=== PATIENT | male | born 1955 | race Caucasian/White ===

== ENCOUNTER 2022-08-14 06:40 | Day surgery (SDC) | payer MEDICARE ==
--- NOTE | 2022-08-12 13:34 | HP ---
DATE OF SURGERY: 08/14/2022 HISTORY OF PRESENT ILLNESS: The patient is a 66-year-old male with complaints of skin lesions on the left forearm. It appears that he had a biopsy of these in the past. It is not certain what this came back as. PAST MEDICAL HISTORY: Gastroesophageal reflux disease. PAST SURGICAL HISTORY: None recent. ALLERGIES: NKDA. MEDICATIONS: Propranolol. FAMILY HISTORY: None reported. SOCIAL HISTORY: None reported. REVIEW OF SYSTEMS: CONSTITUTIONAL: Denies fever or chills. CHEST: Denies shortness of breath. CVS: Denies chest pain. ABDOMEN: Denies abdominal pain. PHYSICAL EXAMINATION: GENERAL: No acute distress. CHEST: Nonlabored. No shortness of breath. CVS: Regular rate and rhythm. ABDOMEN: Soft. IMPRESSION: Forearm lesion. PLAN: Excision of left forearm lesion with Dr. Demetrio Marc. As dictated by Celine Weeks NP.
[2022-08-14] MEDS ORDERED: XYLOCAINE 1% HCL 20 ML MDV ONE ×2 (06:56→10:37)
[2022-08-14 11:41] VITALS: BP 137/69; PULSE 75
[2022-08-14 11:42] VITALS: O2SAT 94
--- NOTE | 2022-08-14 12:58 | OP ---
SURGERY DATE/TIME: 08/14/2022 1000 PREOPERATIVE DIAGNOSIS: Multiple premalignant lesions. POSTOPERATIVE DIAGNOSIS: Multiple premalignant lesions. PROCEDURE: Excision of four lesions 1 cm on the left upper arm and three - 1 cm lesions on the forearm. All four areas were primarily closed. All four lesions were atypical. Pathology is pending. SURGEON: Demetrio Marc M.D. ANESTHESIA: Local. DESCRIPTION OF PROCEDURE: Routine prep and drape. 1% lidocaine. Elliptical excision. Hemostasis obtained with electrocautery. The area closed with simple and vertical mattress sutures 4-0 Prolene. Sterile dressing applied. The patient tolerated the procedure satisfactory. Findings discussed with the in the waiting room.
== END 2022-08-14 11:44 | disposition home or self-care (01) ==
LOC: SDC 06:40
PROVIDERS: ATTEND Surgery
DX: C44.629 Squamous cell carcinoma of skin of left upper limb, including shoulder (principal); L57.0 Actinic keratosis; L82.1 Other seborrheic keratosis

== ENCOUNTER 2024-07-12 15:27 | Observation (INO) | payer MEDICARE ==
--- NOTE | 2024-07-12 16:00 | ERPHSYRPT ---
- History of Present Illness Time Seen by Provider: 07/12/24 15:45 Source: patient Exam Limitations: no limitations Patient Subjective Stated Complaint: pt was in physical therapy when his oxygen level dropped to 66% Triage Nursing Assessment: pt came into er via wheelchair; pt transfer to cot with standby assist; pt is axo x4; c/o SOB; pt denies pain and denies chest pain; clear lung sounds in all lobes; dry hacking cough present; pt states SOB, no respiratory distress present; pt is able to talk in full sentence; 96% on room air; vitals wnl; skin PDW Physician History: 68-year-old male presents to our ED for evaluation of shortness of breath. Patient states he was in physical therapy performing exercises when symptoms occurred. Patient reports that physical therapy checked his O2 sat. O2 sat was 66% on room air. Patient was brought to our ED for an evaluation. Patient reports he has pain to his left calf. Patient denies history of COPD. No fever no cough. Patient denies chest pain. Symptoms are worse with exertion. O2 sat on room air at rest is 96%. Patient currently feels well he voices no other complaints or concerns at this time. Portions of this note were created with voice recognition technology. There may be grammatical, spelling, punctuation or sound alike errors Timing/Duration: today Severity: moderate Modifying Factors: Improves With: nothing Associated Symptoms: denies symptoms Allergies/Adverse Reactions: No Known Drug Allergies Allergy (Verified 07/12/24 15:28) Home Medications: Aspirin [Low Dose Aspirin EC] 1 tab PO DAILY 07/07/22 [History] Carvedilol 12.5 mg [Coreg 12.5 mg] 1 tab PO BID 07/07/22 [History] Empagliflozin [Jardiance] 25 mg PO DAILY 07/07/22 [History] Ezetimibe 10 mg [Zetia 10 MG] 10 mg PO DAILY 07/07/22 [History] Furosemide 40 mg [Lasix 40 MG] 40 mg PO DAILY 07/07/22 [History] Multivit-Min/Folic/Vit K/Lycop [Men's 50 Plus Multivitamin Tab] 1 tab PO DAILY 07/07/22 [History] [place]-3S/Dha/Epa/Fish Oil [[place]-3 Fish Oil 1,000 mg Sfgl] 2 cap PO DAILY 07/07/22 [History] Pantoprazole 20 mg [Protonix 20MG Tablet] 20 mg PO DAILY 07/07/22 [History] Spironolactone 25 mg [Aldactone 25 MG] 25 mg PO BID 07/07/22 [History] Turmeric/Turmeric Root Extract [Turmeric 500 mg Capsule] 2,000 mg PO DAILY 07/07/22 [History] Cyanocobalamin (Vitamin B-12) [Vitamin B12] See Rx Instructions .ROUTE .COMPLEX 07/12/24 [History] Evolocumab [Repatha Syringe] See Rx Instructions .ROUTE .COMPLEX 07/12/24 [History] Gabapentin [Gabarone] 100 mg PO TID 07/12/24 [History] Magnesium Oxide 400 mg [Mag-Ox 400] 1 tab PO BID 07/12/24 [History] Metformin HCl [Metformin ER Osmotic] 1 tab PO BID 07/12/24 [History] Sacubitril/Valsartan [Entresto 97 mg-103 mg Tablet] 1 tab PO DAILY 07/12/24 [History] Semaglutide [Ozempic] 0.5 mg SQ WEEKLY 07/12/24 [History] Ubidecarenone [Co Q-10] 1 tab PO DAILY 07/12/24 [History] Hx Tetanus, Diphtheria Vaccination/Date Given: Yes Hx Influenza Vaccination/Date Given: Yes Hx Pneumococcal Vaccination/Date Given: Yes Travel Risk - International Travel Have you traveled outside of the country in past 3 weeks: No - Emerging Infectious Disease Are you exhibiting symptoms associated with any current EIDs: Yes Symptoms: Shortness of Breath - Review of Systems Constitutional: No Symptoms, No Fever, No Chills Eyes: No Symptoms Ears, Nose, & Throat: No Symptoms Respiratory: No Symptoms, No Cough, No Dyspnea Cardiac: No Symptoms, No Chest Pain, No Edema, No Syncope Abdominal/Gastrointestinal: No Symptoms, No Abdominal Pain, No Nausea, No Vomiting, No Diarrhea Genitourinary Symptoms: No Symptoms, No Dysuria Musculoskeletal: No Symptoms, No Back Pain, No Neck Pain Skin: No Symptoms, No Rash Neurological: No Symptoms, No Dizziness, No Focal Weakness, No Sensory Changes Psychological: No Symptoms Endocrine: No Symptoms Hematologic/Lymphatic: No Symptoms Immunological/Allergic: No Symptoms All Other Systems: Reviewed and Negative - Past Medical History Pertinent Past Medical History: Yes Neurological History: Peripheral Neuropathy, Stroke ENT History: Cataracts Cardiac History: Angina, Congestive Heart Failure, Myocardial Infarction (AR) Respiratory History: COPD Endocrine Medical History: Diabetes Type II Musculoskeletal History: Fractures, Osteoarthritis GI Medical History: GERD, Hemorrhoids History: No Pertinent History Psycho-Social History: No Pertinent History Male Reproductive Disorders: No Pertinent History Other Medical History: MILD STROKE WHEN HE HAD AN AR. CATARACT SURGERY. 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 ICD IMPLANT. PERIPHERIAL ARTERY DISEASE - Past Surgical History Past Surgical History: Yes Neuro Surgical History: No Pertinent History Cardiac: Cardiac Catheterization, Cardiac Stent, Internal Defibrillator Respiratory: No Pertinent History Gastrointestinal: Other Genitourinary: No Pertinent History Musculoskeletal: No Pertinent History Male Surgical History: No Pertinent History Other Surgical History: DETACHED RETINAL LASER SURGERY favio. eyes, COLONOSCOPY and EGD - Social History Smoking Status: Smoker, status unknown Exposure to second hand smoke: Yes Drug Use: none - Social Determinants of Health Will the patient participate in the screening: Yes Do you worry about a steady place to live?: No Do you have any problems with any of the following?: No known problems In the past 12 months,have you had to go without utilities?: No Transportation Issues: No Has anyone in your support network made you feel unsafe?: No Have you or anyone in your house had to go w/o enough food: No - Nursing Vital Signs Nursing Vital Signs: Initial Vital Signs Temperature 97.6 F 07/12/24 15:31 Pulse Rate 66 07/12/24 15:31 Respiratory Rate 24 07/12/24 15:31 Blood Pressure 113/67 07/12/24 15:31 O2 Sat by Pulse Oximetry 96 07/12/24 15:31 Pain Scale Pain Intensity 0 - Physical Exam General Appearance: no apparent distress, alert Eye Exam: PERRL/EOMI, eyes nml inspection Ears, Nose, Throat Exam: normal ENT inspection, TMs normal, pharynx normal, moist mucous membranes Neck Exam: normal inspection, non-tender, supple, full range of motion Respiratory Exam: normal breath sounds, lungs clear, airway intact, No respiratory distress Cardiovascular Exam: regular rate/rhythm, normal heart sounds, normal peripheral pulses Gastrointestinal/Abdomen Exam: soft, normal bowel sounds, No tenderness, No mass Back Exam: normal inspection, normal range of motion, No CVA tenderness, No vertebral tenderness Extremity Exam: normal inspection, normal range of motion, pelvis stable, racheal's sign, other (Positive Homans' sign left lower extremity) Neurologic Exam: alert, oriented x 3, cooperative, normal mood/affect, sensation nml, No motor deficits Skin Exam: normal color, warm, dry, No rash Lymphatic Exam: No adenopathy SpO2 Interpretation: normal SpO2: 93 O2 Delivery: Room Air - Course Nursing assessment & vital signs reviewed: Yes EKG Interpreted by Me: RATE (71 ventricular paced rhythm) - Radiology Exams Chest X-ray Interpretation: Teleradiologist Report (Bilateral atelectasis versus infiltrate, borderline cardiomegaly) - Radiology Ultrasound Exam Venous Lower Extremity Ultrasound: tele radiology report (Left lower extremity ultrasound negative for DVT) Ordered Tests: Active Orders 24 hr Category Date Time Status [place] [employer]er STAT Care 07/12/24 15:58 Active EKG-ER Only STAT Care 07/12/24 15:57 Active IV Insertion STAT Care 07/12/24 15:57 Active Pulse Oximetry (ED) STAT Care 07/12/24 15:57 Active CHEST 1 VIEW (PORTABLE) Stat Exams 07/12/24 17:42 Taken VENOUS UNILAT/LIMITED EXTREMIT [US] Stat Exams 07/12/24 15:59 Completed ABG [ARTERIAL BLOOD GASES] Stat Lab 07/12/24 17:42 Completed BLOOD CULTURE Stat Lab 07/12/24 21:31 Ordered CBC W DIFF Stat Lab 07/12/24 16:16 Completed CMP Stat Lab 07/12/24 16:16 Completed D-DIMER QUANTITATIVE Stat Lab 07/12/24 16:16 Completed NT PRO BNPII Stat Lab 07/12/24 16:16 Completed TROPONIN Q4H Lab 07/12/24 16:16 Completed TROPONIN Q4H Lab 07/12/24 19:40 Completed TROPONIN Q4H Lab 07/13/24 00:00 Ordered UA W/RFX UR CULTURE Stat Lab 07/12/24 18:37 Completed Transfer Order Routine Transfer 07/12/24 Ordered Medication Summary Generic Name Dose Route Start Last Admin Trade Name Freq PRN Reason Stop Dose Admin Ceftriaxone Sodium 2 gm in 100 mls @ 200 mls/hr 07/12/24 21:35 07/12/24 21:45 Rocephin 2 Gm/100 Ml Nacl IV 07/12/24 22:04 200 mls/hr STAT ONE 200 mls/hr Administration Azithromycin 500 mg/ Sodium 250 mls @ 250 mls/hr 07/12/24 21:35 Chloride IV 07/12/24 22:34 STAT STA Discontinued Medications Generic Name Dose Route Start Last Admin Trade Name Mert PRN Reason Stop Dose Admin Ceftriaxone Sodium Confirm 07/12/24 21:44 Rocephin 2 Gm/100 Ml Nacl Administered 07/12/24 21:45 Dose 2 gm in 100 mls @ ud IV .STK-MED ONE Lab/Rad Data: Laboratory Result Diagrams 07/12/24 16:16 07/12/24 16:16 Laboratory Results 07/12/24 07/12/24 07/12/24 Range/Units 19:40 18:37 17:42 WBC (4.23-9.07) x10^3/uL RBC (4.63-6.08) x10^6/uL Hgb (13.7-17.5) g/dL Hct (40.1-51.0) % MCV (79.0-92.2) fL MCH (25.7-32.2) pg MCHC (32.3-36.5) g/dL RDW (11.6-14.4) % Plt Count (163-337) x10^3/uL MPV (9.4-12.4) fL Gran % (34.0-67.9) % Immature Gran % (Auto) (0.001-0.429) % Nucleat RBC Rel Count (0.00-0.2) % Eos # (Auto) (0.04-0.54) x10^3/uL Immature Gran # (Auto) (0.001-0.031) x10^3u/L Absolute Lymphs (auto) (1.32-3.57) x10^3/uL Absolute Monos (auto) (0.30-0.82) x10^3/uL Absolute Nucleated RBC (0.00-0.012) x10^3u/L Lymphocytes % (21.8-53.1) % Monocytes % (5.3-12.2) % Eosinophils % (0.8-7.0) % Basophils % (0.2-1.2) % Absolute Granulocytes (1.78-5.38) x10^3/uL Basophils # (0.01-0.08) x10^3/uL D-Dimer (0.0-0.50) mg/L Puncture Site RRA pCO2 46 H (35-45) mmHg pO2 67 L (75-100) mmHg Base Excess 7.7 H (-2.0-2.0) O2 Saturation 93.3 L (94-100) g/dF ABG pH 7.46 H (7.35-7.45) ABG HCO3 32.7 H* (22-28) ABG O2 Sat (Measured) 94.2 L (95-100) % Isiah Test Yes A-a Gradient 25 a/A Ratio 0.73 Hemoglobin 14.5 Carboxyhemoglobin 0.9 (0.0-6.9) % THgb Methemoglobin 0.2 L (1.4-1.5) % Temperature 37.0 C POC O2 Flow Rate 21 % Sodium (135-145) mmol/L Potassium 4.1 (3.5-5.1) mmol/L Chloride (98-107) mmol/L Carbon Dioxide (22-30) mmol/L Anion Gap (5-15) MEQ/L BUN (9-20) mg/dL Creatinine (0.66-1.25) mg/dL Estimated GFR ML/MIN Glucose (74-106) mg/dL Calcium (8.4-10.2) mg/dL Total Bilirubin (0.2-1.3) mg/dL AST (17-59) U/L ALT (0-50) U/L Alkaline Phosphatase (38-126) U/L Troponin I 0.018 (0.000-0.033) ng/mL NT-Pro-B Natriuret Pep (<300) pg/mL Serum Total Protein (6.3-8.2) g/dL Albumin (3.5-5.0) g/dL Urine Color Yellow (Yellow) Urine Appearance Clear (Clear) Urine pH 7.5 (4.6-8.0) Ur Specific [place] 1.025 (1.005-1.030) Urine Protein Negative (Negative) Urine Glucose (UA) >=1000 A (Negative) mg/dL Urine Ketones Negative (Negative) Urine Blood Negative (Negative) Urine Nitrite Negative (Negative) Urine Bilirubin Negative (Negative) Urine Urobilinogen 1.0 A (0.2) mg/dL Ur Leukocyte Esterase Negative (Negative) U Hyaline Cast (Auto) NONE SEEN (0-2) /LPF Urine Microscopic RBC 0-2 (0-5) /HPF Urine Microscopic WBC 0-2 (0-5) /HPF Ur Epithelial Cells None Seen (None Seen) /HPF Urine Bacteria None Seen (None Seen) /HPF Urine Culture Reflexed NO (NO) 07/12/24 07/12/24 07/12/24 Range/Units 16:16 16:16 16:16 WBC (4.23-9.07) x10^3/uL RBC (4.63-6.08) x10^6/uL Hgb (13.7-17.5) g/dL Hct (40.1-51.0) % MCV (79.0-92.2) fL MCH (25.7-32.2) pg MCHC (32.3-36.5) g/dL RDW (11.6-14.4) % Plt Count (163-337) x10^3/uL MPV (9.4-12.4) fL Gran % (34.0-67.9) % Immature Gran % (Auto) (0.001-0.429) % Nucleat RBC Rel Count (0.00-0.2) % Eos # (Auto) (0.04-0.54) x10^3/uL Immature Gran # (Auto) (0.001-0.031) x10^3u/L Absolute Lymphs (auto) (1.32-3.57) x10^3/uL Absolute Monos (auto) (0.30-0.82) x10^3/uL Absolute Nucleated RBC (0.00-0.012) x10^3u/L Lymphocytes % (21.8-53.1) % Monocytes % (5.3-12.2) % Eosinophils % (0.8-7.0) % Basophils % (0.2-1.2) % Absolute Granulocytes (1.78-5.38) x10^3/uL Basophils # (0.01-0.08) x10^3/uL D-Dimer 0.22 (0.0-0.50) mg/L Puncture Site pCO2 (35-45) mmHg pO2 (75-100) mmHg Base Excess (-2.0-2.0) O2 Saturation (94-100) g/dF ABG pH (7.35-7.45) ABG HCO3 (22-28) ABG O2 Sat (Measured) (95-100) % Isiah Test A-a Gradient a/A Ratio Hemoglobin Carboxyhemoglobin (0.0-6.9) % THgb Methemoglobin (1.4-1.5) % Temperature C POC O2 Flow Rate % Sodium 140 (135-145) mmol/L Potassium 4.8 (3.5-5.1) mmol/L Chloride 103 (98-107) mmol/L Carbon Dioxide 27 (22-30) mmol/L Anion Gap 15.0 (5-15) MEQ/L BUN 23 H (9-20) mg/dL Creatinine 0.73 (0.66-1.25) mg/dL Estimated GFR 97.9 ML/MIN Glucose 142 H (74-106) mg/dL Calcium 9.4 (8.4-10.2) mg/dL Total Bilirubin 0.40 (0.2-1.3) mg/dL AST 34 (17-59) U/L ALT 28 (0-50) U/L Alkaline Phosphatase 66 (38-126) U/L Troponin I 0.015 (0.000-0.033) ng/mL NT-Pro-B Natriuret Pep 146 (<300) pg/mL Serum Total Protein 6.6 (6.3-8.2) g/dL Albumin 4.2 (3.5-5.0) g/dL Urine Color (Yellow) Urine Appearance (Clear) Urine pH (4.6-8.0) Ur Specific [place] (1.005-1.030) Urine Protein (Negative) Urine Glucose (UA) (Negative) mg/dL Urine Ketones (Negative) Urine Blood (Negative) Urine Nitrite (Negative) Urine Bilirubin (Negative) Urine Urobilinogen (0.2) mg/dL Ur Leukocyte Esterase (Negative) U Hyaline Cast (Auto) (0-2) /LPF Urine Microscopic RBC (0-5) /HPF Urine Microscopic WBC (0-5) /HPF Ur Epithelial Cells (None Seen) /HPF Urine Bacteria (None Seen) /HPF Urine Culture Reflexed (NO) 07/12/24 Range/Units 16:16 WBC 8.3 (4.23-9.07) x10^3/uL RBC 4.82 (4.63-6.08) x10^6/uL Hgb 14.4 (13.7-17.5) g/dL Hct 43.8 (40.1-51.0) % MCV 90.9 (79.0-92.2) fL MCH 29.9 (25.7-32.2) pg MCHC 32.9 (32.3-36.5) g/dL RDW 13.7 (11.6-14.4) % Plt Count 238 (163-337) x10^3/uL MPV 11.3 (9.4-12.4) fL Gran % 63.5 (34.0-67.9) % Immature Gran % (Auto) 0.5 H (0.001-0.429) % Nucleat RBC Rel Count 0.0 (0.00-0.2) % Eos # (Auto) 0.22 (0.04-0.54) x10^3/uL Immature Gran # (Auto) 0.04 H (0.001-0.031) x10^3u/L Absolute Lymphs (auto) 2.16 (1.32-3.57) x10^3/uL Absolute Monos (auto) 0.55 (0.30-0.82) x10^3/uL Absolute Nucleated RBC 0.00 (0.00-0.012) x10^3u/L Lymphocytes % 26.2 (21.8-53.1) % Monocytes % 6.7 (5.3-12.2) % Eosinophils % 2.7 (0.8-7.0) % Basophils % 0.4 (0.2-1.2) % Absolute Granulocytes 5.26 (1.78-5.38) x10^3/uL Basophils # 0.03 (0.01-0.08) x10^3/uL D-Dimer (0.0-0.50) mg/L Puncture Site pCO2 (35-45) mmHg pO2 (75-100) mmHg Base Excess (-2.0-2.0) O2 Saturation (94-100) g/dF ABG pH (7.35-7.45) ABG HCO3 (22-28) ABG O2 Sat (Measured) (95-100) % Isiah Test A-a Gradient a/A Ratio Hemoglobin Carboxyhemoglobin (0.0-6.9) % THgb Methemoglobin (1.4-1.5) % Temperature C POC O2 Flow Rate % Sodium (135-145) mmol/L Potassium (3.5-5.1) mmol/L Chloride (98-107) mmol/L Carbon Dioxide (22-30) mmol/L Anion Gap (5-15) MEQ/L BUN (9-20) mg/dL Creatinine (0.66-1.25) mg/dL Estimated GFR ML/MIN Glucose (74-106) mg/dL Calcium (8.4-10.2) mg/dL Total Bilirubin (0.2-1.3) mg/dL AST (17-59) U/L ALT (0-50) U/L Alkaline Phosphatase (38-126) U/L Troponin I (0.000-0.033) ng/mL NT-Pro-B Natriuret Pep (<300) pg/mL Serum Total Protein (6.3-8.2) g/dL Albumin (3.5-5.0) g/dL Urine Color (Yellow) Urine Appearance (Clear) Urine pH (4.6-8.0) Ur Specific [place] (1.005-1.030) Urine Protein (Negative) Urine Glucose (UA) (Negative) mg/dL Urine Ketones (Negative) Urine Blood (Negative) Urine Nitrite (Negative) Urine Bilirubin (Negative) Urine Urobilinogen (0.2) mg/dL Ur Leukocyte Esterase (Negative) U Hyaline Cast (Auto) (0-2) /LPF Urine Microscopic RBC (0-5) /HPF Urine Microscopic WBC (0-5) /HPF Ur Epithelial Cells (None Seen) /HPF Urine Bacteria (None Seen) /HPF Urine Culture Reflexed (NO) - Progress Progress: improved Progress Note: 68-year-old male complicated past medical history including COPD presents to our ED from physical therapy for evaluation of acute onset shortness of breath and hypoxia. Upon arrival to our ED patient's hypoxia had resolved. O2 sat was 94% on room air. Chest x-ray reveals borderline cardiomegaly and blunting of bilateral costophrenic angles possibly secondary to infiltrate. Blood cultures obtained. Antibiotics infused. Troponin negative x 2. D-dimer negative. Positive Racheal left lower extremity. Ultrasound left lower extremity negative for DVT. Patient reassessed. He is resting comfortably. Patient's is at the bedside. She has his night meds with him which she will administer. Case discussed with Dr. Choi who accepts admission to observation at 9:46 PM. Plan of care discussed with patient. He agrees to admission to [facility] for further evaluation and treatment. Portions of this note were created with voice recognition technology. There may be grammatical, spelling, punctuation or sound alike errors Complexity of problem addressed is moderate acute complicated. No critical care time. Complexity of data reviewed and analyzed is extensive. Test ordered test reviewed results analyzed and correlated clinically with history and physical exam. Management discussed with hospitalist who accepts admission to observation. Risk of complication and or risk of morbidity/mortality of patient management is high. Patient requires hospitalization for further evaluation and treatment. Vital stable. Time spent admit patient is approximately 15 minutes. Plan of care established for shared decision making. No social determinants of health present to impede follow-up. 07/12/24 21:49 Counseled pt/family regarding: diagnosis, need for follow-up, rad results - Departure Departure Disposition: Observation Clinical Impression: Glucosuria, SOB (shortness of breath), Hypoxia, Pulmonary infiltrate Condition: Stable Critical Care Time: No Referrals: JAMIL PHILLIPS MD [Primary Care Provider] - Follow up/PCP as directed Additional Instructions: Discharge/Care Plan ALLEN TRINIDAD was seen on 07/12/24 in the Emergency Room. The patient was counseled regarding Diagnosis,Lab results, Imaging studies, need for follow up and when to return to the Emergency Room. Prescriptions given: Discharge Note I have spoken with the patient and/or caregivers. I have explained the patient's condition, diagnosis and treatment plan based on the information available to me at this time. I have answered the patient's and/or caregiver's questions and addressed any concerns. The patient and/or caregivers have as good understanding of the patient's diagnosis, condition and treatment plan as can be expected at this point. The vital signs have been stable. The patient's condition is stable and appropriate for discharge from the emergency department. The patient will pursue further outpatient evaluation with the primary care physician or other designated or consulting physician as outlined in the discharge instructions. The patient and/or caregivers are agreeable to this plan of care and follow-up instructions have been explained in detail. The patient and/or caregivers have received these instruction. The patient/and or caregivers are aware that any significant change in condition or worsening of symptoms should prompt an immediate return to this or the closest emergency department or call 911.
[2024-07-12 16:14] LABS: Absolute Neutrophil Ct (ANC) 5.26 x10^3/uL (1.78-5.38); BASOPHIL % 0.4 % (0.2-1.2); Basophil (Absolute #) 0.03 x10^3/uL (0.01-0.08); Eosinophil % 2.7 % (0.8-7.0); Eosinophil (Absolute #) 0.22 x10^3/uL (0.04-0.54); Hematocrit 43.8 % (40.1-51.0); Hemoglobin 14.4 g/dL (13.7-17.5); IMMATURE GRAN # 0.04 x10^3u/L (0.001-0.031); IMMATURE GRAN % 0.5 % (0.001-0.429); Lymphocyte (Absolute #) 2.16 x10^3/uL (1.32-3.57); Lymphocytes % 26.2 % (21.8-53.1); Mean Cell Volume 90.9 fL (79.0-92.2); Mean Corpuscular Hemoglobin 29.9 pg (25.7-32.2); Mean Corpuscular Hgb Concent. 32.9 g/dL (32.3-36.5); Mean Platelet Volume 11.3 fL (9.4-12.4); Monocyte (Absolute #) 0.55 x10^3/uL (0.30-0.82); Monocytes % 6.7 % (5.3-12.2); Neutrophil % 63.5 % (34.0-67.9); Platelet Count 238 x10^3/uL (163-337); Red Blood Count 4.82 x10^6/uL (4.63-6.08); Red Cell Distribution Width 13.7 % (11.6-14.4); White Blood Count 8.3 x10^3/uL (4.23-9.07)
[2024-07-12 16:39] LABS: ALBUMIN 4.2 g/dL (3.5-5.0); BILIRUBIN,TOTAL 0.4 mg/dL (0.2-1.3); Calcium 9.4 mg/dL (8.4-10.2); Creatinine 1 0.73 mg/dL (0.66-1.25); EST GLOMERULAR FILTRATION RATE 97.9 ML/MIN; Potassium 4.8 mmol/L (3.5-5.1); Total Protein 6.6 g/dL (6.3-8.2)
--- NOTE | 2024-07-12 17:16 | XRAY ---
Indication: Pain. Two-dimensional sonogram and color Doppler imaging major venous vessels left leg performed. Comparison: None No thrombus seen in the examined deep venous vessels left leg including greater saphenous vein. Veins demonstrate normal compressibility. Venous waveforms are normal with and without augmentation. Impression: Left leg negative for DVT.
[2024-07-12 18:49] LABS: Appearance Clear (Clear); Bacteria None Seen /HPF (None Seen); Bilirubin Negative (Negative); Blood Negative (Negative); Epithelial Cells None Seen /HPF (None Seen); Glucose, Urine >=1000 mg/dL (Negative); Hyaline Casts NONE SEEN /LPF (0-2); Ketones Negative (Negative); Leukocyte Esterase Negative (Negative); Nitrite Negative (Negative); Ph 7.5 (4.6-8.0); Protein,Urine Dip Negative (Negative); RBC 0-2 /HPF (0-5); Specific Gravity 1.025 (1.005-1.030); WBC 0-2 /HPF (0-5)
[2024-07-12 19:50] LABS: A-aADO2 25; ABG HEMOGLOBIN 14.5; ABG POTASSIUM 4.1 (3.5-5.1); ARTERIAL BLD GAS O2 SATURATION 94.2 % (95-100); ARTERIAL BLOOD GAS BASE EXCESS 7.7 (-2.0-2.0); ARTERIAL BLOOD GAS FIO2 21 %; ARTERIAL BLOOD GAS PCO2 46 mmHg (35-45); ARTERIAL BLOOD GAS PO2 67 mmHg (75-100); ARTERIAL BLOOD GAS pH 7.46 (7.35-7.45); CARBOXYHEMOGLOBIN 0.9 % THgb (0.0-6.9); HCO3- 32.7 (22-28); HGB O2 SAT 93.3 g/dF (94-100); Methhemoglobin 0.2 % (1.4-1.5); paO2 pAO1 0.73
[2024-07-12 19:51] LABS: ABG SITE RRA; ALLEN TEST OK? Yes
[2024-07-12] MEDS ORDERED: ROCEPHIN 2 GM/100 ML NACL 2 GM/100 ML IVPB IV ONE (21:44)
[2024-07-12] MEDS: ROCEPHIN 2 GM/100 ML NACL 2 GM/100 ML IVPB IV ONE (21:45)
[2024-07-12] MEDS ORDERED: Sodium Chloride 0.9% 250 ML 250 ML IV ONE (22:18)
[2024-07-12] MEDS ORDERED: ZITHROMAX IV IV ONE (22:18)
[2024-07-12] MEDS: ZITHROMAX IV*** 500 MG in Sodium Chloride 0.9% 250 ML 250 ML IV STA (22:21)
--- NOTE | 2024-07-12 22:30 | PCM.HP ---
History of Present Illness - Chief Complaint Chief Complaint: SOB Date: 07/12/24 History of Present Illness: Mr. 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 O2 sats were in the 60-70s. He came to the ER where he was started on supplemental oxygen and duonebs. He was sent for a venous doppler to rule out DVT. No fever/chills. No chest pain or palpitations. No nausea, vomiting or diarrhea. No dysuria, hematuria or urgency. No recent sick contacts. - Review of Systems Constitutional: No Fever, No Chills Eyes: No Vision Changes Ears, Nose, & Throat: No Nose Discharge, No Sinus Drainage Respiratory: Cough, Orthopnea, Short Of Breath Cardiac: No Chest Pain, No Edema, No Palpitations Abdominal/Gastrointestinal: No Abdominal Pain, No Nausea, No Vomiting, No Diarrhea Genitourinary Symptoms: No Dysuria, No Frequency Musculoskeletal: No Arthralgias, No Back Pain Skin: No Rash Neurological: Lethargy, No Focal Weakness Psychological: No Suicidal Ideations Endocrine: No Polyuria, No Polydipsia Medications & Allergies Home Medications: Home Medication List Aspirin [Low Dose Aspirin EC] 1 tab PO DAILY 07/07/22 [History Confirmed 07/12/24] Carvedilol 12.5 mg [Coreg 12.5 mg] 1 tab PO BID 07/07/22 [History Confirmed 07/12/24] Empagliflozin [Jardiance] 25 mg PO DAILY 07/07/22 [History Confirmed 07/12/24] Ezetimibe 10 mg [Zetia 10 MG] 10 mg PO DAILY 07/07/22 [History Confirmed 07/12/24] Furosemide 40 mg [Lasix 40 MG] 40 mg PO DAILY 07/07/22 [History Confirmed 07/12/24] Multivit-Min/Folic/Vit K/Lycop [Men's 50 Plus Multivitamin Tab] 1 tab PO DAILY 07/07/22 [History Confirmed 07/12/24] Shelby-3S/Dha/Epa/Fish Oil [Shelby-3 Fish Oil 1,000 mg Sfgl] 2 cap PO DAILY 07/07/22 [History Confirmed 07/12/24] Pantoprazole 20 mg [Protonix 20MG Tablet] 20 mg PO DAILY 07/07/22 [History Confirmed 07/12/24] Spironolactone 25 mg [Aldactone 25 MG] 25 mg PO BID 07/07/22 [History Confirmed 07/12/24] Turmeric/Turmeric Root Extract [Turmeric 500 mg Capsule] 2,000 mg PO DAILY 07/07/22 [History Confirmed 07/12/24] Cyanocobalamin (Vitamin B-12) [Vitamin B12] See Rx Instructions .ROUTE .COMPLEX 07/12/24 [History Confirmed 07/12/24] Evolocumab [Repatha Syringe] See Rx Instructions .ROUTE .COMPLEX 07/12/24 [History Confirmed 07/12/24] Gabapentin [Gabarone] 100 mg PO TID 07/12/24 [History Confirmed 07/12/24] Magnesium Oxide 400 mg [Mag-Ox 400] 1 tab PO BID 07/12/24 [History Confirmed 07/12/24] Metformin HCl [Metformin ER Osmotic] 1 tab PO BID 07/12/24 [History Confirmed 07/12/24] Sacubitril/Valsartan [Entresto 97 mg-103 mg Tablet] 1 tab PO DAILY 07/12/24 [History Confirmed 07/12/24] Semaglutide [Ozempic] 0.5 mg SQ WEEKLY 07/12/24 [History Confirmed 07/12/24] Ubidecarenone [Co Q-10] 1 tab PO DAILY 07/12/24 [History Confirmed 07/12/24] Allergies/Adverse Reactions: Allergies Allergy/AdvReac Type Severity Reaction Status Date / Time No Known Drug Allergies Allergy Verified 07/12/24 15:28 - Past Medical History Past Medical History: Yes Neurological History: Peripheral Neuropathy, Stroke ENT History: Cataracts Cardiac History: Angina, Congestive Heart Failure, Myocardial Infarction (PR) Respiratory History: COPD Endocrine Medical History: Diabetes Type II Musculoskelatal History: Fractures, Osteoarthritis GI Medical History: GERD, Hemorrhoids History: No Pertinent History Pyscho-Social History: No Pertinent History Male Reproductive Disorders: No Pertinent History Comment: MILD STROKE WHEN HE HAD AN PR. CATARACT SURGERY. 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 ICD IMPLANT. PERIPHERIAL ARTERY DISEASE - Past Surgical History Past Surgical History: Yes Neuro Surgical History: No Pertinent History Cardiac History: Cardiac Catheterization, Cardiac Stent, Internal Defibrillator Respiratory Surgery: No Pertinent History GI Surgical History: Other Genitourinary Surgical Hx: No Pertinent History Musculskeletal Surgical Hx: No Pertinent History Male Surgical History: No Pertinent History Other Surgical History: DETACHED RETINAL LASER SURGERY favio. eyes, COLONOSCOPY and EGD - Social History Smoking Status: Smoker, status unknown Exposure to second hand smoke: Yes Alcohol: Rarely Drug Use: none - Social Determinants of Health Will the patient participate in the screening: Yes Do you worry about a steady place to live?: No Do you have any problems with any of the following?: No known problems In the past 12 months,have you had to go without utilities?: No Have you or anyone in your house had to go without enough: No Transportation Issues: No Has anyone in your support network made you feel unsafe?: No - Physical Exam Vital Signs: Vital Signs - 24 hr Temp Pulse Resp BP BP Pulse Ox 07/12/24 22:01 61 21 112/52 96 07/12/24 21:52 93 L 07/12/24 21:30 60 18 119/67 93 L 07/12/24 21:00 66 20 100/53 96 07/12/24 20:30 64 21 93/46 96 07/12/24 20:01 60 24 110/48 96 07/12/24 19:30 66 24 103/56 95 07/12/24 19:01 64 22 94/48 96 07/12/24 18:47 62 22 108/62 96 07/12/24 18:46 64 21 96 07/12/24 18:40 59 L 25 H 96 07/12/24 18:32 69 22 97 07/12/24 18:00 62 19 119/75 95 07/12/24 17:31 61 18 97/52 96 07/12/24 17:00 60 18 109/64 97 07/12/24 16:47 57 L 18 99/44 97 07/12/24 16:45 63 18 110/58 98 07/12/24 16:44 62 19 116/43 97 07/12/24 16:31 63 32 H 97/63 95 07/12/24 16:03 70 26 H 105/59 93 L 07/12/24 16:01 61 23 94 L 07/12/24 15:35 66 24 113/67 93 L 07/12/24 15:34 64 24 96 07/12/24 15:31 97.6 F 66 24 113/67 96 General Appearance: no apparent distress Neurologic Exam: cooperative, No disoriented Ears, Nose, Throat Exam: dry mucous membranes Neck Exam: supple Respiratory Exam: rhonchi, No respiratory distress Cardiovascular Exam: regular rate/rhythm Gastrointestinal/Abdomen Exam: soft Extremity Exam: pedal edema, swelling Skin Exam: normal color, No rash Results - Labs Lab/Micro Results: Lab Results-Last 24 Hours 07/12/24 07/12/24 07/12/24 Range/Units 16:16 16:16 16:16 WBC 8.3 (4.23-9.07) x10^3/uL RBC 4.82 (4.63-6.08) x10^6/uL Hgb 14.4 (13.7-17.5) g/dL Hct 43.8 (40.1-51.0) % MCV 90.9 (79.0-92.2) fL MCH 29.9 (25.7-32.2) pg MCHC 32.9 (32.3-36.5) g/dL RDW 13.7 (11.6-14.4) % Plt Count 238 (163-337) x10^3/uL MPV 11.3 (9.4-12.4) fL Gran % 63.5 (34.0-67.9) % Immature Gran % (Auto) 0.5 H (0.001-0.429) % Nucleat RBC Rel Count 0.0 (0.00-0.2) % Eos # (Auto) 0.22 (0.04-0.54) x10^3/uL Immature Gran # (Auto) 0.04 H (0.001-0.031) x10^3u/L Absolute Lymphs (auto) 2.16 (1.32-3.57) x10^3/uL Absolute Monos (auto) 0.55 (0.30-0.82) x10^3/uL Absolute Nucleated RBC 0.00 (0.00-0.012) x10^3u/L Lymphocytes % 26.2 (21.8-53.1) % Monocytes % 6.7 (5.3-12.2) % Eosinophils % 2.7 (0.8-7.0) % Basophils % 0.4 (0.2-1.2) % Absolute Granulocytes 5.26 (1.78-5.38) x10^3/uL Basophils # 0.03 (0.01-0.08) x10^3/uL D-Dimer 0.22 (0.0-0.50) mg/L Puncture Site pCO2 (35-45) mmHg pO2 (75-100) mmHg Base Excess (-2.0-2.0) O2 Saturation (94-100) g/dF ABG pH (7.35-7.45) ABG HCO3 (22-28) ABG O2 Sat (Measured) (95-100) % Isiah Test A-a Gradient a/A Ratio Hemoglobin Carboxyhemoglobin (0.0-6.9) % THgb Methemoglobin (1.4-1.5) % Temperature C POC O2 Flow Rate % Sodium 140 (135-145) mmol/L Potassium 4.8 (3.5-5.1) mmol/L Chloride 103 (98-107) mmol/L Carbon Dioxide 27 (22-30) mmol/L Anion Gap 15.0 (5-15) MEQ/L BUN 23 H (9-20) mg/dL Creatinine 0.73 (0.66-1.25) mg/dL Estimated GFR 97.9 ML/MIN Glucose 142 H (74-106) mg/dL Calcium 9.4 (8.4-10.2) mg/dL Total Bilirubin 0.40 (0.2-1.3) mg/dL AST 34 (17-59) U/L ALT 28 (0-50) U/L Alkaline Phosphatase 66 (38-126) U/L Troponin I (0.000-0.033) ng/mL NT-Pro-B Natriuret Pep 146 (<300) pg/mL Serum Total Protein 6.6 (6.3-8.2) g/dL Albumin 4.2 (3.5-5.0) g/dL Urine Color (Yellow) Urine Appearance (Clear) Urine pH (4.6-8.0) Ur Specific [place] (1.005-1.030) Urine Protein (Negative) Urine Glucose (UA) (Negative) mg/dL Urine Ketones (Negative) Urine Blood (Negative) Urine Nitrite (Negative) Urine Bilirubin (Negative) Urine Urobilinogen (0.2) mg/dL Ur Leukocyte Esterase (Negative) U Hyaline Cast (Auto) (0-2) /LPF Urine Microscopic RBC (0-5) /HPF Urine Microscopic WBC (0-5) /HPF Ur Epithelial Cells (None Seen) /HPF Urine Bacteria (None Seen) /HPF Urine Culture Reflexed (NO) 07/12/24 07/12/24 07/12/24 Range/Units 16:16 17:42 18:37 WBC (4.23-9.07) x10^3/uL RBC (4.63-6.08) x10^6/uL Hgb (13.7-17.5) g/dL Hct (40.1-51.0) % MCV (79.0-92.2) fL MCH (25.7-32.2) pg MCHC (32.3-36.5) g/dL RDW (11.6-14.4) % Plt Count (163-337) x10^3/uL MPV (9.4-12.4) fL Gran % (34.0-67.9) % Immature Gran % (Auto) (0.001-0.429) % Nucleat RBC Rel Count (0.00-0.2) % Eos # (Auto) (0.04-0.54) x10^3/uL Immature Gran # (Auto) (0.001-0.031) x10^3u/L Absolute Lymphs (auto) (1.32-3.57) x10^3/uL Absolute Monos (auto) (0.30-0.82) x10^3/uL Absolute Nucleated RBC (0.00-0.012) x10^3u/L Lymphocytes % (21.8-53.1) % Monocytes % (5.3-12.2) % Eosinophils % (0.8-7.0) % Basophils % (0.2-1.2) % Absolute Granulocytes (1.78-5.38) x10^3/uL Basophils # (0.01-0.08) x10^3/uL D-Dimer (0.0-0.50) mg/L Puncture Site RRA pCO2 46 H (35-45) mmHg pO2 67 L (75-100) mmHg Base Excess 7.7 H (-2.0-2.0) O2 Saturation 93.3 L (94-100) g/dF ABG pH 7.46 H (7.35-7.45) ABG HCO3 32.7 H* (22-28) ABG O2 Sat (Measured) 94.2 L (95-100) % Isiah Test Yes A-a Gradient 25 a/A Ratio 0.73 Hemoglobin 14.5 Carboxyhemoglobin 0.9 (0.0-6.9) % THgb Methemoglobin 0.2 L (1.4-1.5) % Temperature 37.0 C POC O2 Flow Rate 21 % Sodium (135-145) mmol/L Potassium 4.1 (3.5-5.1) mmol/L Chloride (98-107) mmol/L Carbon Dioxide (22-30) mmol/L Anion Gap (5-15) MEQ/L BUN (9-20) mg/dL Creatinine (0.66-1.25) mg/dL Estimated GFR ML/MIN Glucose (74-106) mg/dL Calcium (8.4-10.2) mg/dL Total Bilirubin (0.2-1.3) mg/dL AST (17-59) U/L ALT (0-50) U/L Alkaline Phosphatase (38-126) U/L Troponin I 0.015 (0.000-0.033) ng/mL NT-Pro-B Natriuret Pep (<300) pg/mL Serum Total Protein (6.3-8.2) g/dL Albumin (3.5-5.0) g/dL Urine Color Yellow (Yellow) Urine Appearance Clear (Clear) Urine pH 7.5 (4.6-8.0) Ur Specific [place] 1.025 (1.005-1.030) Urine Protein Negative (Negative) Urine Glucose (UA) >=1000 A (Negative) mg/dL Urine Ketones Negative (Negative) Urine Blood Negative (Negative) Urine Nitrite Negative (Negative) Urine Bilirubin Negative (Negative) Urine Urobilinogen 1.0 A (0.2) mg/dL Ur Leukocyte Esterase Negative (Negative) U Hyaline Cast (Auto) NONE SEEN (0-2) /LPF Urine Microscopic RBC 0-2 (0-5) /HPF Urine Microscopic WBC 0-2 (0-5) /HPF Ur Epithelial Cells None Seen (None Seen) /HPF Urine Bacteria None Seen (None Seen) /HPF Urine Culture Reflexed NO (NO) 07/12/24 Range/Units 19:40 WBC (4.23-9.07) x10^3/uL RBC (4.63-6.08) x10^6/uL Hgb (13.7-17.5) g/dL Hct (40.1-51.0) % MCV (79.0-92.2) fL MCH (25.7-32.2) pg MCHC (32.3-36.5) g/dL RDW (11.6-14.4) % Plt Count (163-337) x10^3/uL MPV (9.4-12.4) fL Gran % (34.0-67.9) % Immature Gran % (Auto) (0.001-0.429) % Nucleat RBC Rel Count (0.00-0.2) % Eos # (Auto) (0.04-0.54) x10^3/uL Immature Gran # (Auto) (0.001-0.031) x10^3u/L Absolute Lymphs (auto) (1.32-3.57) x10^3/uL Absolute Monos (auto) (0.30-0.82) x10^3/uL Absolute Nucleated RBC (0.00-0.012) x10^3u/L Lymphocytes % (21.8-53.1) % Monocytes % (5.3-12.2) % Eosinophils % (0.8-7.0) % Basophils % (0.2-1.2) % Absolute Granulocytes (1.78-5.38) x10^3/uL Basophils # (0.01-0.08) x10^3/uL D-Dimer (0.0-0.50) mg/L Puncture Site pCO2 (35-45) mmHg pO2 (75-100) mmHg Base Excess (-2.0-2.0) O2 Saturation (94-100) g/dF ABG pH (7.35-7.45) ABG HCO3 (22-28) ABG O2 Sat (Measured) (95-100) % Isiah Test A-a Gradient a/A Ratio Hemoglobin Carboxyhemoglobin (0.0-6.9) % THgb Methemoglobin (1.4-1.5) % Temperature C POC O2 Flow Rate % Sodium (135-145) mmol/L Potassium (3.5-5.1) mmol/L Chloride (98-107) mmol/L Carbon Dioxide (22-30) mmol/L Anion Gap (5-15) MEQ/L BUN (9-20) mg/dL Creatinine (0.66-1.25) mg/dL Estimated GFR ML/MIN Glucose (74-106) mg/dL Calcium (8.4-10.2) mg/dL Total Bilirubin (0.2-1.3) mg/dL AST (17-59) U/L ALT (0-50) U/L Alkaline Phosphatase (38-126) U/L Troponin I 0.018 (0.000-0.033) ng/mL NT-Pro-B Natriuret Pep (<300) pg/mL Serum Total Protein (6.3-8.2) g/dL Albumin (3.5-5.0) g/dL Urine Color (Yellow) Urine Appearance (Clear) Urine pH (4.6-8.0) Ur Specific [place] (1.005-1.030) Urine Protein (Negative) Urine Glucose (UA) (Negative) mg/dL Urine Ketones (Negative) Urine Blood (Negative) Urine Nitrite (Negative) Urine Bilirubin (Negative) Urine Urobilinogen (0.2) mg/dL Ur Leukocyte Esterase (Negative) U Hyaline Cast (Auto) (0-2) /LPF Urine Microscopic RBC (0-5) /HPF Urine Microscopic WBC (0-5) /HPF Ur Epithelial Cells (None Seen) /HPF Urine Bacteria (None Seen) /HPF Urine Culture Reflexed (NO) - Radiology Impressions Radiology Exams & Impressions: Radiology Procedures Category Date Time Status CHEST 1 VIEW (PORTABLE) Stat Exams 07/12/24 17:42 Taken VENOUS UNILAT/LIMITED EXTREMIT [US] Stat Exams 07/12/24 15:59 Completed Assessment/Plan (1) SOB (shortness of breath) Current Visit: Yes Status: Acute Assessment & Plan: Shortness of breath with hypoxia possibly from pneumonia versus CHF exacerbation 1. Admit to hospital 2. Duonebs, supplemental oxygen 3. Empiric antibiotics, check sputum culture 4. Attempt diuresis 5. DVT/GI prophylaxis 6. Monitor O2 sats Code(s): R06.02 - SHORTNESS OF BREATH (2) Essential (primary) hypertension Current Visit: Yes Status: Acute Assessment & Plan: Blood pressure under reasonable control 1. Continue bp meds 2. Low Na diet 3. Monitor blood pressure readings Code(s): I10 - ESSENTIAL (PRIMARY) HYPERTENSION (3) Type 2 diabetes mellitus without complications Current Visit: Yes Status: Acute Qualifiers: Diabetes mellitus intermodal customer service insulin use: without intermodal customer service use Qualified Code(s): E11.9 - Type 2 diabetes mellitus without complications Assessment & Plan: Blood sugars under good control 1. ADA diet 2. FSBS qAC/HS 3. SSI Code(s): E11.9 - TYPE 2 DIABETES MELLITUS WITHOUT COMPLICATIONS (4) CHF (congestive heart failure) Current Visit: Yes Status: Acute Assessment & Plan: History of CHF on Entresto/diuretics/SGLT2 1. Telemetry 2. Diuresis 3. Check echo 4. Follow I/Os 5. Watch electrolytes, kidney function with diuretics Code(s): I50.9 - HEART FAILURE, UNSPECIFIED Telemedicine Encounter - Telemedicine Encounter Telemedicine Encounter: "The entirety of this encounter was performed via Telemedicine" This visit was performed using real-time audio and video connection between my location and thepatients locationwith the assistance of a surrogateat the patients location. Written or verbal consent was obtained from the patient/guardian to perform this [facility]. Any patient questions regarding the telemedicine interaction were answered.
[2024-07-12 22:48] LABS: INFLUENZA A NEGATIVE (NEGATIVE); INFLUENZA B NEGATIVE (NEGATIVE); RESPIRATORY SYNCTIAL VIRUS NEGATIVE (NEGATIVE); SARS-CoV-2 Xpert Express NEGATIVE (NEGATIVE)
[2024-07-12] MEDS ORDERED: HUMALOG SQ PRN (22:52)
[2024-07-12] MEDS ORDERED: Zofran 4 MG/2 ML VIAL IV PRN (22:52)
[2024-07-12] MEDS ORDERED: TYLENOL 325 MG PO PRN (22:52)
[2024-07-13] MEDS ORDERED: DUONEB 0.5-3 MG/3 ml Neb IH ONE (00:53)
[2024-07-13] MEDS: DUONEB 0.5-3 MG/3 ml Neb IH SCH (01:52)
[2024-07-13] MEDS ORDERED: DUONEB 0.5-3 MG/3 ml Neb IH PRN (01:53)
[2024-07-13 06:02] LABS: Absolute Neutrophil Ct (ANC) 5.31 x10^3/uL (1.78-5.38); BASOPHIL % 0.3 % (0.2-1.2); Basophil (Absolute #) 0.03 x10^3/uL (0.01-0.08); Eosinophil % 2.3 % (0.8-7.0); Eosinophil (Absolute #) 0.21 x10^3/uL (0.04-0.54); Hematocrit 43.6 % (40.1-51.0); Hemoglobin 13.9 g/dL (13.7-17.5); IMMATURE GRAN # 0.03 x10^3u/L (0.001-0.031); IMMATURE GRAN % 0.3 % (0.001-0.429); Lymphocyte (Absolute #) 2.84 x10^3/uL (1.32-3.57); Lymphocytes % 31.4 % (21.8-53.1); Mean Cell Volume 93.6 fL (79.0-92.2); Mean Corpuscular Hemoglobin 29.8 pg (25.7-32.2); Mean Corpuscular Hgb Concent. 31.9 g/dL (32.3-36.5); Mean Platelet Volume 11.4 fL (9.4-12.4); Monocyte (Absolute #) 0.63 x10^3/uL (0.30-0.82); Neutrophil % 58.7 % (34.0-67.9); Platelet Count 199 x10^3/uL (163-337); Red Blood Count 4.66 x10^6/uL (4.63-6.08); Red Cell Distribution Width 13.7 % (11.6-14.4); White Blood Count 9.1 x10^3/uL (4.23-9.07)
[2024-07-13 06:29] LABS: ALBUMIN 3.9 g/dL (3.5-5.0); ANION GAP 11.2 MEQ/L (5-15); BILIRUBIN,TOTAL 0.4 mg/dL (0.2-1.3); Calcium 8.5 mg/dL (8.4-10.2); Creatinine 1 0.74 mg/dL (0.66-1.25); EST GLOMERULAR FILTRATION RATE 97.5 ML/MIN; Potassium 3.8 mmol/L (3.5-5.1); Total Protein 6.3 g/dL (6.3-8.2)
[2024-07-13 07:26] VITALS: RESP 16
--- NOTE | 2024-07-13 08:58 | XRAY ---
Indication: Short of breath. Comparison: None Portable chest demonstrates mild bibasilar infiltrates/atelectasis/effusions. Heart borderline enlarged with left pacemaker. Bony thorax intact.
[2024-07-13] MEDS: MAG-OX 400 PO SCH (09:05)
[2024-07-13] MEDS: ECOTRIN 81 MG PO SCH (09:05)
[2024-07-13] MEDS: ENOXAPARIN SODIUM SQ SCH (09:05)
[2024-07-13] MEDS: ENTRESTO 49 MG-51 MG TABLET PO SCH (09:06)
[2024-07-13] MEDS: Zetia 10 MG PO SCH (09:06)
[2024-07-13] MEDS: BUMEX 1 MG IV SCH (09:06)
[2024-07-13] MEDS: COREG 12.5 MG PO SCH (09:06)
[2024-07-13] MEDS: Aldactone 25 MG PO SCH (09:06)
[2024-07-13] MEDS: JARDIANCE PO SCH (09:08)
[2024-07-13] MEDS: Protonix 40MG Tablet PO SCH (09:08)
[2024-07-13] MEDS ORDERED: NON-FORMULARY ITEM (Sacubitril/Valsartan [Entresto 97 Mg-103 Mg Tablet] 1 EACH Tablet) PO SCH (10:00)
[2024-07-13] MEDS ORDERED: JARDIANCE PO SCH (10:00)
--- NOTE | 2024-07-13 10:32 | PCM.DS ---
Discharge Summary Date of Admission: 07/12/24 22:39 Date of Discharge: 07/13/24 Admitting Physician: AMERICA SWANN MD Primary Care Provider: JAMIL PHILLIPS Allergies Allergies No Known Drug Allergies Allergy (Verified 07/12/24 15:28) Hospital Summary - Hospital Course Hospital Course: Mr. TRINIDAD is a 68 year old male with a past medical history significant for hypertension, diabetes, hyperlipidemia, CHF, CAD with multiple previous heart attacks, and general debility who was sent by his petrologist for PT but was found to be quite hypoxic. O2 sats were in the 60-70s. He came to the ER where he was started on supplemental oxygen and duonebs. He was sent for a venous doppler to rule out DVT and this was negative. No fever/chills. No chest pain or palpitations. No nausea, vomiting or diarrhea. No dysuria, hematuria or urgency. No recent sick contacts.Today he states he feels fine and would like to go home. He is room air 93%. Lung sounds are clear. He is to have an echo today. CXR shows mild bibasilar infiltrates/atelectasis/effusions.He was started on IV antibiotics and can continue PO antibiotics OP. BCx2 and sputum sample pending- will continue to follow OP. He denies CP, SOB, abd. pain, N/V/D. - Vitals & Intake/Output Vital Signs: Vital Signs Temperature 98.1 F 07/13/24 07:26 Pulse Rate 66 07/13/24 07:26 Respiratory Rate 16 07/13/24 07:26 Blood Pressure 124/55 07/13/24 07:26 O2 Sat by Pulse Oximetry 95 07/13/24 07:26 Intake & Output: Intake & Output 07/10/24 07/11/24 07/12/24 07/13/24 11:59 11:59 11:59 11:59 Intake Total 980 Output Total 800 Balance 180 Weight 117.5 kg - Lab Result Diagrams: 07/13/24 05:52 07/13/24 05:52 Lab Results-Last 24 Hrs: Lab Results-Last 24 Hours 07/12/24 07/12/24 07/12/24 Range/Units 16:16 16:16 16:16 WBC 8.3 (4.23-9.07) x10^3/uL RBC 4.82 (4.63-6.08) x10^6/uL Hgb 14.4 (13.7-17.5) g/dL Hct 43.8 (40.1-51.0) % MCV 90.9 (79.0-92.2) fL MCH 29.9 (25.7-32.2) pg MCHC 32.9 (32.3-36.5) g/dL RDW 13.7 (11.6-14.4) % Plt Count 238 (163-337) x10^3/uL MPV 11.3 (9.4-12.4) fL Gran % 63.5 (34.0-67.9) % Immature Gran % (Auto) 0.5 H (0.001-0.429) % Nucleat RBC Rel Count 0.0 (0.00-0.2) % Eos # (Auto) 0.22 (0.04-0.54) x10^3/uL Immature Gran # (Auto) 0.04 H (0.001-0.031) x10^3u/L Absolute Lymphs (auto) 2.16 (1.32-3.57) x10^3/uL Absolute Monos (auto) 0.55 (0.30-0.82) x10^3/uL Absolute Nucleated RBC 0.00 (0.00-0.012) x10^3u/L Lymphocytes % 26.2 (21.8-53.1) % Monocytes % 6.7 (5.3-12.2) % Eosinophils % 2.7 (0.8-7.0) % Basophils % 0.4 (0.2-1.2) % Absolute Granulocytes 5.26 (1.78-5.38) x10^3/uL Basophils # 0.03 (0.01-0.08) x10^3/uL D-Dimer 0.22 (0.0-0.50) mg/L Puncture Site pCO2 (35-45) mmHg pO2 (75-100) mmHg Base Excess (-2.0-2.0) O2 Saturation (94-100) g/dF ABG pH (7.35-7.45) ABG HCO3 (22-28) ABG O2 Sat (Measured) (95-100) % Isiah Test A-a Gradient a/A Ratio Hemoglobin Carboxyhemoglobin (0.0-6.9) % THgb Methemoglobin (1.4-1.5) % Temperature C POC O2 Flow Rate % Sodium 140 (135-145) mmol/L Potassium 4.8 (3.5-5.1) mmol/L Chloride 103 (98-107) mmol/L Carbon Dioxide 27 (22-30) mmol/L Anion Gap 15.0 (5-15) MEQ/L BUN 23 H (9-20) mg/dL Creatinine 0.73 (0.66-1.25) mg/dL Estimated GFR 97.9 ML/MIN Glucose 142 H (74-106) mg/dL POC Glucometer (74 to 106) mg/dL Calcium 9.4 (8.4-10.2) mg/dL Total Bilirubin 0.40 (0.2-1.3) mg/dL AST 34 (17-59) U/L ALT 28 (0-50) U/L Alkaline Phosphatase 66 (38-126) U/L Troponin I (0.000-0.033) ng/mL NT-Pro-B Natriuret Pep 146 (<300) pg/mL Serum Total Protein 6.6 (6.3-8.2) g/dL Albumin 4.2 (3.5-5.0) g/dL Urine Color (Yellow) Urine Appearance (Clear) Urine pH (4.6-8.0) Ur Specific [place] (1.005-1.030) Urine Protein (Negative) Urine Glucose (UA) (Negative) mg/dL Urine Ketones (Negative) Urine Blood (Negative) Urine Nitrite (Negative) Urine Bilirubin (Negative) Urine Urobilinogen (0.2) mg/dL Ur Leukocyte Esterase (Negative) U Hyaline Cast (Auto) (0-2) /LPF Urine Microscopic RBC (0-5) /HPF Urine Microscopic WBC (0-5) /HPF Ur Epithelial Cells (None Seen) /HPF Urine Bacteria (None Seen) /HPF Urine Culture Reflexed (NO) Influenza Type A Ag (NEGATIVE) Influenza Type B Ag (NEGATIVE) RSV (PCR) (NEGATIVE) SARS-CoV-2 (PCR) (NEGATIVE) 07/12/24 07/12/24 07/12/24 Range/Units 16:16 17:42 18:37 WBC (4.23-9.07) x10^3/uL RBC (4.63-6.08) x10^6/uL Hgb (13.7-17.5) g/dL Hct (40.1-51.0) % MCV (79.0-92.2) fL MCH (25.7-32.2) pg MCHC (32.3-36.5) g/dL RDW (11.6-14.4) % Plt Count (163-337) x10^3/uL MPV (9.4-12.4) fL Gran % (34.0-67.9) % Immature Gran % (Auto) (0.001-0.429) % Nucleat RBC Rel Count (0.00-0.2) % Eos # (Auto) (0.04-0.54) x10^3/uL Immature Gran # (Auto) (0.001-0.031) x10^3u/L Absolute Lymphs (auto) (1.32-3.57) x10^3/uL Absolute Monos (auto) (0.30-0.82) x10^3/uL Absolute Nucleated RBC (0.00-0.012) x10^3u/L Lymphocytes % (21.8-53.1) % Monocytes % (5.3-12.2) % Eosinophils % (0.8-7.0) % Basophils % (0.2-1.2) % Absolute Granulocytes (1.78-5.38) x10^3/uL Basophils # (0.01-0.08) x10^3/uL D-Dimer (0.0-0.50) mg/L Puncture Site RRA pCO2 46 H (35-45) mmHg pO2 67 L (75-100) mmHg Base Excess 7.7 H (-2.0-2.0) O2 Saturation 93.3 L (94-100) g/dF ABG pH 7.46 H (7.35-7.45) ABG HCO3 32.7 H* (22-28) ABG O2 Sat (Measured) 94.2 L (95-100) % Isiah Test Yes A-a Gradient 25 a/A Ratio 0.73 Hemoglobin 14.5 Carboxyhemoglobin 0.9 (0.0-6.9) % THgb Methemoglobin 0.2 L (1.4-1.5) % Temperature 37.0 C POC O2 Flow Rate 21 % Sodium (135-145) mmol/L Potassium 4.1 (3.5-5.1) mmol/L Chloride (98-107) mmol/L Carbon Dioxide (22-30) mmol/L Anion Gap (5-15) MEQ/L BUN (9-20) mg/dL Creatinine (0.66-1.25) mg/dL Estimated GFR ML/MIN Glucose (74-106) mg/dL POC Glucometer (74 to 106) mg/dL Calcium (8.4-10.2) mg/dL Total Bilirubin (0.2-1.3) mg/dL AST (17-59) U/L ALT (0-50) U/L Alkaline Phosphatase (38-126) U/L Troponin I 0.015 (0.000-0.033) ng/mL NT-Pro-B Natriuret Pep (<300) pg/mL Serum Total Protein (6.3-8.2) g/dL Albumin (3.5-5.0) g/dL Urine Color Yellow (Yellow) Urine Appearance Clear (Clear) Urine pH 7.5 (4.6-8.0) Ur Specific [place] 1.025 (1.005-1.030) Urine Protein Negative (Negative) Urine Glucose (UA) >=1000 A (Negative) mg/dL Urine Ketones Negative (Negative) Urine Blood Negative (Negative) Urine Nitrite Negative (Negative) Urine Bilirubin Negative (Negative) Urine Urobilinogen 1.0 A (0.2) mg/dL Ur Leukocyte Esterase Negative (Negative) U Hyaline Cast (Auto) NONE SEEN (0-2) /LPF Urine Microscopic RBC 0-2 (0-5) /HPF Urine Microscopic WBC 0-2 (0-5) /HPF Ur Epithelial Cells None Seen (None Seen) /HPF Urine Bacteria None Seen (None Seen) /HPF Urine Culture Reflexed NO (NO) Influenza Type A Ag (NEGATIVE) Influenza Type B Ag (NEGATIVE) RSV (PCR) (NEGATIVE) SARS-CoV-2 (PCR) (NEGATIVE) 07/12/24 07/12/24 07/13/24 Range/Units 19:40 22:05 05:52 WBC (4.23-9.07) x10^3/uL RBC (4.63-6.08) x10^6/uL Hgb (13.7-17.5) g/dL Hct (40.1-51.0) % MCV (79.0-92.2) fL MCH (25.7-32.2) pg MCHC (32.3-36.5) g/dL RDW (11.6-14.4) % Plt Count (163-337) x10^3/uL MPV (9.4-12.4) fL Gran % (34.0-67.9) % Immature Gran % (Auto) (0.001-0.429) % Nucleat RBC Rel Count (0.00-0.2) % Eos # (Auto) (0.04-0.54) x10^3/uL Immature Gran # (Auto) (0.001-0.031) x10^3u/L Absolute Lymphs (auto) (1.32-3.57) x10^3/uL Absolute Monos (auto) (0.30-0.82) x10^3/uL Absolute Nucleated RBC (0.00-0.012) x10^3u/L Lymphocytes % (21.8-53.1) % Monocytes % (5.3-12.2) % Eosinophils % (0.8-7.0) % Basophils % (0.2-1.2) % Absolute Granulocytes (1.78-5.38) x10^3/uL Basophils # (0.01-0.08) x10^3/uL D-Dimer (0.0-0.50) mg/L Puncture Site pCO2 (35-45) mmHg pO2 (75-100) mmHg Base Excess (-2.0-2.0) O2 Saturation (94-100) g/dF ABG pH (7.35-7.45) ABG HCO3 (22-28) ABG O2 Sat (Measured) (95-100) % Isiah Test A-a Gradient a/A Ratio Hemoglobin Carboxyhemoglobin (0.0-6.9) % THgb Methemoglobin (1.4-1.5) % Temperature C POC O2 Flow Rate % Sodium (135-145) mmol/L Potassium (3.5-5.1) mmol/L Chloride (98-107) mmol/L Carbon Dioxide (22-30) mmol/L Anion Gap (5-15) MEQ/L BUN (9-20) mg/dL Creatinine (0.66-1.25) mg/dL Estimated GFR ML/MIN Glucose (74-106) mg/dL POC Glucometer (74 to 106) mg/dL Calcium (8.4-10.2) mg/dL Total Bilirubin (0.2-1.3) mg/dL AST (17-59) U/L ALT (0-50) U/L Alkaline Phosphatase (38-126) U/L Troponin I 0.018 0.020 (0.000-0.033) ng/mL NT-Pro-B Natriuret Pep (<300) pg/mL Serum Total Protein (6.3-8.2) g/dL Albumin (3.5-5.0) g/dL Urine Color (Yellow) Urine Appearance (Clear) Urine pH (4.6-8.0) Ur Specific [place] (1.005-1.030) Urine Protein (Negative) Urine Glucose (UA) (Negative) mg/dL Urine Ketones (Negative) Urine Blood (Negative) Urine Nitrite (Negative) Urine Bilirubin (Negative) Urine Urobilinogen (0.2) mg/dL Ur Leukocyte Esterase (Negative) U Hyaline Cast (Auto) (0-2) /LPF Urine Microscopic RBC (0-5) /HPF Urine Microscopic WBC (0-5) /HPF Ur Epithelial Cells (None Seen) /HPF Urine Bacteria (None Seen) /HPF Urine Culture Reflexed (NO) Influenza Type A Ag NEGATIVE (NEGATIVE) Influenza Type B Ag NEGATIVE (NEGATIVE) RSV (PCR) NEGATIVE (NEGATIVE) SARS-CoV-2 (PCR) NEGATIVE (NEGATIVE) 07/13/24 07/13/24 07/13/24 Range/Units 05:52 05:52 07:44 WBC 9.1 H (4.23-9.07) x10^3/uL RBC 4.66 (4.63-6.08) x10^6/uL Hgb 13.9 (13.7-17.5) g/dL Hct 43.6 (40.1-51.0) % MCV 93.6 H (79.0-92.2) fL MCH 29.8 (25.7-32.2) pg MCHC 31.9 L (32.3-36.5) g/dL RDW 13.7 (11.6-14.4) % Plt Count 199 (163-337) x10^3/uL MPV 11.4 (9.4-12.4) fL Gran % 58.7 (34.0-67.9) % Immature Gran % (Auto) 0.3 (0.001-0.429) % Nucleat RBC Rel Count 0.0 (0.00-0.2) % Eos # (Auto) 0.21 (0.04-0.54) x10^3/uL Immature Gran # (Auto) 0.03 (0.001-0.031) x10^3u/L Absolute Lymphs (auto) 2.84 (1.32-3.57) x10^3/uL Absolute Monos (auto) 0.63 (0.30-0.82) x10^3/uL Absolute Nucleated RBC 0.00 (0.00-0.012) x10^3u/L Lymphocytes % 31.4 (21.8-53.1) % Monocytes % 7.0 (5.3-12.2) % Eosinophils % 2.3 (0.8-7.0) % Basophils % 0.3 (0.2-1.2) % Absolute Granulocytes 5.31 (1.78-5.38) x10^3/uL Basophils # 0.03 (0.01-0.08) x10^3/uL D-Dimer (0.0-0.50) mg/L Puncture Site pCO2 (35-45) mmHg pO2 (75-100) mmHg Base Excess (-2.0-2.0) O2 Saturation (94-100) g/dF ABG pH (7.35-7.45) ABG HCO3 (22-28) ABG O2 Sat (Measured) (95-100) % Isiah Test A-a Gradient a/A Ratio Hemoglobin Carboxyhemoglobin (0.0-6.9) % THgb Methemoglobin (1.4-1.5) % Temperature C POC O2 Flow Rate % Sodium 140 (135-145) mmol/L Potassium 3.8 D (3.5-5.1) mmol/L Chloride 103 (98-107) mmol/L Carbon Dioxide 30 (22-30) mmol/L Anion Gap 11.2 (5-15) MEQ/L BUN 22 H (9-20) mg/dL Creatinine 0.74 (0.66-1.25) mg/dL Estimated GFR 97.5 ML/MIN Glucose 95 (74-106) mg/dL POC Glucometer 123 H (74 to 106) mg/dL Calcium 8.5 (8.4-10.2) mg/dL Total Bilirubin 0.40 (0.2-1.3) mg/dL AST 30 (17-59) U/L ALT 25 (0-50) U/L Alkaline Phosphatase 55 (38-126) U/L Troponin I (0.000-0.033) ng/mL NT-Pro-B Natriuret Pep (<300) pg/mL Serum Total Protein 6.3 (6.3-8.2) g/dL Albumin 3.9 (3.5-5.0) g/dL Urine Color (Yellow) Urine Appearance (Clear) Urine pH (4.6-8.0) Ur Specific [place] (1.005-1.030) Urine Protein (Negative) Urine Glucose (UA) (Negative) mg/dL Urine Ketones (Negative) Urine Blood (Negative) Urine Nitrite (Negative) Urine Bilirubin (Negative) Urine Urobilinogen (0.2) mg/dL Ur Leukocyte Esterase (Negative) U Hyaline Cast (Auto) (0-2) /LPF Urine Microscopic RBC (0-5) /HPF Urine Microscopic WBC (0-5) /HPF Ur Epithelial Cells (None Seen) /HPF Urine Bacteria (None Seen) /HPF Urine Culture Reflexed (NO) Influenza Type A Ag (NEGATIVE) Influenza Type B Ag (NEGATIVE) RSV (PCR) (NEGATIVE) SARS-CoV-2 (PCR) (NEGATIVE) Micro Results-Entire Visit: Accuchecks Date 07/13/24 Time 07:47 - Radiology Exams Ordered Rad Exams-Entire Visit: Radiology Procedures Category Date Time Status CHEST 1 VIEW (PORTABLE) Stat Exams 07/12/24 17:42 Completed ECHO W/2D AND DOPPLER [US] Routine Exams 07/13/24 08:00 Ordered VENOUS UNILAT/LIMITED EXTREMIT [US] Stat Exams 07/12/24 15:59 Completed - Procedures and Test Procedures and Tests throughout Hospitalization: Therapy Orders & Screens 07/12/24 22:52 PT Eval & Treat ( Order) ONCE Reason for Eval:: weakness Diagnosis: Pulmonary infiltrate, hypoxia Respiratory Therapy Consult ONCE Comment: Reason For Exam: Diagnosis: Pulmonary infiltrate, hypoxia 07/12/24 23:34 Respiratory Therapy Assessment DAILY Comment: Diagnosis: SOB 07/13/24 07:00 Oxygen Nasal Cannula 2 lpm Comment: Diagnosis: SOB Discharge Exam General Appearance: no apparent distress, alert, obese Neurologic Exam: alert, oriented x 3, cooperative, normal mood/affect, nml cerebellar function, sensation nml, No motor deficits Eye Exam: PERRL, EOMI, eyes nml inspection Ears, Nose, Throat Exam: normal ENT inspection, pharynx normal, moist mucous membranes Neck Exam: normal inspection, non-tender, supple, full range of motion Respiratory Exam: normal breath sounds, lungs clear, No respiratory distress Cardiovascular Exam: regular rate/rhythm, normal heart sounds Gastrointestinal/Abdomen Exam: soft, No tenderness, No mass Male Genitalia Exam: deferred Rectal Exam: deferred Back Exam: normal inspection, normal range of motion, No CVA tenderness, No vertebral tenderness Extremity Exam: normal inspection, normal range of motion Skin Exam: normal color, warm, dry Final Diagnosis/Problem List - Final Discharge Diagnosis/Problem (1) Pneumonia Current Visit: Yes Status: Acute Assessment & Plan: - Ceftriaxone, azithromycin, duonebs - RA 93% - Lung sounds clear - CBC, CMP reviewed - WBC 9.1 - CXR: Portable chest demonstrates mild bibasilar infiltrates/atelectasis/effusions. Heart borderline enlarged with left pacemaker. Bony thorax intact. Code(s): J18.9 - PNEUMONIA, UNSPECIFIED ORGANISM (2) CHF (congestive heart failure) Current Visit: Yes Status: Acute Assessment & Plan: - ECHO - BNP 146 - see CXR above - RA 93% - Bumex Code(s): I50.9 - HEART FAILURE, UNSPECIFIED (3) Hypoxia Current Visit: Yes Status: Resolved Assessment & Plan: - 2:2 Pneumonia/ CHF - see above plans - RA 93% - resolved - venous duplex negative Code(s): R09.02 - HYPOXEMIA (4) SOB (shortness of breath) Current Visit: Yes Status: Resolved Assessment & Plan: - resolved - see above plans Code(s): R06.02 - SHORTNESS OF BREATH (5) Type 2 diabetes mellitus without complications Current Visit: Yes Status: Acute Assessment & Plan: - A1C 05/30/24 6.07- controlled - Accuchecks ac/hs, humalog s/s Code(s): E11.9 - TYPE 2 DIABETES MELLITUS WITHOUT COMPLICATIONS (6) Essential (primary) hypertension Current Visit: Yes Status: Chronic Assessment & Plan: - BP stable - Continue home meds Code(s): I10 - ESSENTIAL (PRIMARY) HYPERTENSION - Discharge Discharge Date: 07/13/24 Disposition: Home, Self-Care Condition: Stable Prescriptions: New Doxycycline Hyclate 100 mg [Vibramycin 100 MG] 100 mg PO BID 5 Days #10 tab cefuroxime axetiL [Cefuroxime] 500 mg PO BID 5 Days #10 tablet Continue [place]-3S/Dha/Epa/Fish Oil [[place]-3 Fish Oil 1,000 mg Sfgl] 2 cap PO DAILY Multivit-Min/Folic/Vit K/Lycop [Men's 50 Plus Multivitamin Tab] 1 tab PO DAILY Aspirin [Low Dose Aspirin EC] 1 tab PO DAILY Carvedilol 12.5 mg [Coreg 12.5 mg] 1 tab PO BID Empagliflozin [Jardiance] 25 mg PO DAILY Furosemide 40 mg [Lasix 40 MG] 40 mg PO DAILY Pantoprazole 20 mg [Protonix 20MG Tablet] 20 mg PO DAILY Ezetimibe 10 mg [Zetia 10 MG] 10 mg PO DAILY Spironolactone 25 mg [Aldactone 25 MG] 25 mg PO BID Turmeric/Turmeric Root Extract [Turmeric 500 mg Capsule] 2,000 mg PO DAILY Magnesium Oxide 400 mg [Mag-Ox 400] 1 tab PO BID Cyanocobalamin (Vitamin B-12) [Vitamin B12] See Rx Instructions .ROUTE .COMPLEX Evolocumab [Repatha Syringe] See Rx Instructions .ROUTE .COMPLEX Sacubitril/Valsartan [Entresto 97 mg-103 mg Tablet] 1 tab PO DAILY Semaglutide [Ozempic] 0.5 mg SQ WEEKLY Metformin HCl [Metformin ER Osmotic] 1 tab PO BID Gabapentin [Gabarone] 100 mg PO TID Ubidecarenone [Co Q-10] 1 tab PO DAILY Instructions: Shortness of breath, Pneumonia in adults - Discharge instructions Additional Instructions: RETURN TO OUTPATIENT PHYSICAL THERAPY FOR YOUR SCHEDULED APPOINTMENT July. Follow up with: JAMIL PHILLIPS MD [Primary Care Provider] - 07/21/24 1:45 pm ARMANDO SHEPARD MD [CONSULTING PHYSICIAN] - 07/20/24 8:30 am
[2024-07-13 11:50] VITALS: BP 98/56; PULSE 101; TEMP 98; O2SAT 93
[2024-07-13] MEDS ORDERED: ZITHROMAX IV*** 500 MG in Sodium Chloride 0.9% 250 ML 250 ML IV SCH (22:00)
[2024-07-13] MEDS ORDERED: ROCEPHIN 1 GM / 100 ML NaCl 1 GM/100 ML IVPB IV SCH (22:00)
== END 2024-07-13 12:30 | disposition home or self-care (01) ==
LOC: ED 15:27 → MED SURG 22:39
PROVIDERS: ADMIT Internal Medicine Nephrology; ATTEND Internal Medicine Nephrology
DX: J18.9 Pneumonia, unspecified organism (principal); I11.0 Hypertensive heart disease with heart failure; I50.9 Heart failure, unspecified; R09.02 Hypoxemia; R06.02 Shortness of breath; E11.9 Type 2 diabetes mellitus without complications; E78.5 Hyperlipidemia, unspecified; I25.10 Atherosclerotic heart disease of native coronary artery without angina pectoris; Z79.899 Other long term (current) drug therapy; Z85.828 Personal history of other malignant neoplasm of skin
CPT/HCPCS: 0241U; 36415; 36600; 71045; 80053; 81001; 82375; 82803; 82947; 83880; 84484; 85025; 85379; 87040; 93005; 93041; 93306; 93971; 94760; 97163; 97530; 99285; Q3014; 93268; J0456; J0696; J1650; A9270-GY; G0378